=== PATIENT | female | born 1980 | race Caucasian/White ===

== ENCOUNTER 2020-06-18 20:09 | Emergency (ER) | payer OTHER ==
[2020-06-18 23:27] LABS: HEMOGLOBIN 7.5 gm/dl (12.3-15.3); RED BLOOD COUNT 3.87 M/UL (4.00-5.10); WHITE BLOOD COUNT 10.4 K/UL (4.5-11.0)
[2020-06-18 23:37] LABS: BUN/CREATININE RATIO 21 (0-10)
[2020-06-19] MEDS ORDERED: BENTYL 20MG TAB20 MG PO (04:54)
[2020-06-19] MEDS ORDERED: PROTONIX20 MG PO (04:54)
[2020-06-19] MEDS ORDERED: ZOFRAN 4 MG TAB4 MG PO (04:54)
[2020-06-19] MEDS ORDERED: COLACE 100MG C100 MG PO (04:54)
[2020-06-22 01:47] LABS: ACINETOBACTER BAUMANNII Not Detected (Negative); CANDIDA ALBICANS Not Detected (Negative); CANDIDA KRUSEI Not Detected (Negative); CANDIDA TROPICALIS Not Detected (Negative); ENTEROCOCCUS Not Detected (Negative); ESCHERICHIA COLI Not Detected (Negative); HAEMOPHILUS INFLUENZAE Not Detected (Negative); KLEBSIELLA OXYTOCA Not Detected (Negative); KLEBSIELLA PNEUMONIAE Not Detected (Negative); KPC-CARBAPENEM-RESISTANCE GENE Not Detected (Negative); PROTEUS Not Detected (Negative); PSEUDOMONAS AERUGINOSA Not Detected (Negative); SERRATIA MARCESANS Not Detected (Negative); STAPHYLOCOCCUS AUREUS Not Detected (Negative); STREP AGALACTIAE (GROUP B) Not Detected (Negative); STREP PYOGENES (GROUP A) Not Detected (Negative); STREPTOCOCCUS Not Detected (Negative); mecA (METHICILLIN RESIST GENE Not Detected (Negative); vanA/B (VANCOMYCIN RESIST GENE Not Detected (Negative)
[2020-06-22 03:02] LABS: STAPHYLOCOCCUS DETECTED (Negative)
== END 2020-06-19 05:30 | disposition home or self-care (01) ==
LOC: ER1 20:09
PROVIDERS: Emergency Medicine
DX: R10.9 Unspecified abdominal pain (principal); D64.9 Anemia, unspecified; R11.2 Nausea with vomiting, unspecified; R19.7 Diarrhea, unspecified; F17.210 Nicotine dependence, cigarettes, uncomplicated; Z88.8 Allergy status to other drugs, medicaments and biological substances
CPT/HCPCS: 71045; 80053; 81001; 82270; 82550; 82553; 83605; 83690; 84484; 85025; 85610; 85730; 87040; 87077; 87150; 87186; 93005; 96374; 96375; 99284; J2270; J2405; Q9967

== ENCOUNTER 2020-12-23 07:50 | Emergency (ER) | payer OTHER ==
[~2020-12-23 07:50] MED LIST: BENTYL 20MG TAB20 MG PO; COLACE 100MG C100 MG PO; PROTONIX20 MG PO; ZOFRAN 4 MG TAB4 MG PO
[2020-12-23 09:46] LABS: HEMOGLOBIN 8.4 gm/dl (12.3-15.3); RED BLOOD COUNT 4.34 M/UL (4.00-5.10); WHITE BLOOD COUNT 10.7 K/UL (4.5-11.0)
[2020-12-23 11:05] LABS: BUN/CREATININE RATIO 16 (0-10)
[2020-12-23] MEDS ORDERED: ZOFRAN ODT 4 MG4 MG PO (12:45)
[2020-12-23] MEDS ORDERED: IBU800 MG PO (12:45)
[2020-12-23] MEDS ORDERED: PEPCID20 MG PO (12:45)
[2020-12-23] MEDS ORDERED: BENTYL 10MG CAP10 MG PO (12:45)
== END 2020-12-23 13:50 | disposition home or self-care (01) ==
LOC: ER1 07:50
PROVIDERS: Nurse Practitioner
DX: R10.9 Unspecified abdominal pain (principal); R07.9 Chest pain, unspecified; R11.2 Nausea with vomiting, unspecified; F17.210 Nicotine dependence, cigarettes, uncomplicated; Z79.899 Other long term (current) drug therapy
CPT/HCPCS: 71045; 76705; 80053; 80307; 81001; 82550; 82553; 83605; 83690; 84484; 84703; 85025; 93005; 99284

== ENCOUNTER → 2021-01-25 | Outpatient (CLI) | payer OTHER ==
[~2021-01-25] MED LIST changes: +BENTYL 10MG CAP10 MG PO; +IBU800 MG PO; +PEPCID20 MG PO; +ZOFRAN ODT 4 MG4 MG PO
[2021-01-25 16:27] LABS: HEMOGLOBIN 7.1 gm/dl (12.3-15.3); RED BLOOD COUNT 3.63 M/UL (4.00-5.10); WHITE BLOOD COUNT 7.2 K/UL (4.5-11.0)
[2021-01-25 16:35] LABS: BUN/CREATININE RATIO 16 (0-10)
== END ==
LOC: LAB 15:39
PROVIDERS: Family Medicine
DX: D64.9 Anemia, unspecified (principal); E87.6 Hypokalemia; K59.00 Constipation, unspecified; R13.10 Dysphagia, unspecified; K21.9 Gastro-esophageal reflux disease without esophagitis
CPT/HCPCS: 36415; 80053; 82607; 83540; 83550; 84443; 85025; 85045

== ENCOUNTER → 2021-03-02 | Day surgery (SDC) | payer OTHER ==
[~2021-03-02] MED LIST changes: +CARAFATE1 GM PO; +DOK100 MG PO; +FERROUS GLUCON324 M2 PO
[2021-03-02 09:52] LABS: HEMOGLOBIN 8.4 gm/dl (12.3-15.3); RED BLOOD COUNT 4.11 M/UL (4.00-5.10); WHITE BLOOD COUNT 4.8 K/UL (4.5-11.0)
== END | disposition home or self-care (01) ==
LOC: OR 06:00
PROVIDERS: Internal Medicine Gastroenterology
DX: K21.01 Gastro-esophageal reflux disease with esophagitis, with bleeding (principal); K22.10 Ulcer of esophagus without bleeding; K44.9 Diaphragmatic hernia without obstruction or gangrene; K64.1 Second degree hemorrhoids; D50.0 Iron deficiency anemia secondary to blood loss (chronic); K59.00 Constipation, unspecified; E66.9 Obesity, unspecified; F17.200 Nicotine dependence, unspecified, uncomplicated; Z68.30 Body mass index [BMI] 30.0-30.9, adult; Z79.899 Other long term (current) drug therapy; Z88.8 Allergy status to other drugs, medicaments and biological substances; Z20.822 Contact with and (suspected) exposure to COVID-19; Z98.51 Tubal ligation status
CPT/HCPCS: 36415; 85027; 86850; 86900; 86901; J2001; J2704; J7040

== ENCOUNTER → 2021-04-18 | Outpatient (CLI) | payer OTHER | LOC: MRI 08:30 | DX: K83.8 Other specified diseases of biliary tract (principal) | CPT/HCPCS: 74181 ==

== ENCOUNTER 2021-11-03 23:21 | Emergency (ER) | payer OTHER ==
[2021-11-04 02:48] LABS: HEMOGLOBIN 10.1 gm/dl (12.3-15.3); RED BLOOD COUNT 4.35 M/UL (4.00-5.10); WHITE BLOOD COUNT 12.6 K/UL (4.5-11.0)
[2021-11-04 03:31] LABS: BUN/CREATININE RATIO 21 (0-10)
[2021-11-04] MEDS ORDERED: KLOR-CON M2020 MEQ PO (03:53)
[2021-11-04] MEDS ORDERED: OMNICEF 300 MG300 MG PO (03:53)
== END 2021-11-04 04:00 | disposition home or self-care (01) ==
LOC: ER1 23:21
PROVIDERS: Student in an Organized Health Care Education/Training Program
DX: E87.6 Hypokalemia (principal); E87.1 Hypo-osmolality and hyponatremia; Z87.448 Personal history of other diseases of urinary system; F17.210 Nicotine dependence, cigarettes, uncomplicated
CPT/HCPCS: 80053; 81001; 85025; 99283